=== PATIENT | female | born 1945 | race Caucasian/White ===

== ENCOUNTER 2024-12-03 10:31 | Outpatient (AMB) | payer MEDICARE, OTHER, SELFPAY ==
--- NOTE | 2024-12-03 10:34 | A.OFFVIS_ITS ---
Vital Signs 12/03/24 10:36 Height 5 ft 2 in Weight 161 lb 2 oz BMI 29.5 BP 142/76 H Blood Pressure Location Rt brachial Position Sitting Pulse 56 Pulse Source Pulse Oximeter Pulse Oximetry (%) 98 Oxygen Delivery Method Room Air Intake Visit Reasons: Shortness of breath Allergies Latex, Natural Rubber Allergy (Mild, Verified 12/03/24 10:42) Rash doxycycline Allergy (Verified 12/03/24 10:42) Vomiting indomethacin (From Indocin) Allergy (Verified 12/03/24 10:42) Gastrointestinal Upset HPI HPI Shortness of breath: Details: Stefanie is a pleasant 79 year old female, never smoker, with underlying HLD and h/o ovarian cancer s/p chemo/surgery 2016. She was referred by PCP for pulmonary evaluation for ongoing dyspnea. She reports more frequent episodes of dyspnea and inability to fully inspire over the past year. She denies any association related to activity. She is quite active on a daily basis either walking 4 miles or swimming, without any symptoms. She denies prior h/o asthma/COPD or second hand smoke exposures. Denies h/o recurrent URI. She denies any occupational exposures. Denies any pertinent family history. She was evaluated by cardiology and currently undergoing evaluation. Recently had an echo which did not reveal any significant abnormalities and had holter, awaiting results.Established with [facility] in [place]. She is under the care of [facility] and [facility] oncology. [facility] Social History (Updated 12/03/24 @ 10:39 by Nelda Peres CMA) Patient Tobacco Use Status: Never used Tobacco Review of Systems Const Denies chills, Denies excessive sweating, Denies fever(s), Denies headache(s) and Denies night sweats Eyes Denies dry eyes, Denies irritation and Denies itchy eyes ENT Reports Normal hearing present, Denies headache(s), Denies nasal congestion, Denies nasal discharge, Denies post nasal drip and Denies sore throat Card Denies chest pain, Denies chest pain at rest, Denies chest pain with activity, Denies claudication, Denies leg edema, Denies orthopnea and Denies paroxysmal nocturnal dyspnea Resp Denies chest congestion, Denies cough, Denies excessive phlegm production, Denies pain on inspiration, Denies pain with cough, Denies stridor and Denies wheezing Musc Denies myalgias Neuro Reports Normal hearing present and Denies headache(s) Endo Denies excessive sweating Jame/Lymph Denies lymphadenopathy Aller/Immun Denies itchy eyes, Denies seasonal rhinorrhea and Denies wheezing Physical Exam Vital Signs: Last Vital Signs Pulse 56 12/03/24 10:36 BP 142/76 H 12/03/24 10:36 Pulse Ox 98 12/03/24 10:36 Oxygen Delivery Method Room Air 12/03/24 10:36 BMI result Body Mass Index 29.5 Const General: cooperative, healthy appearing, comfortable, no acute distress, well developed and alert Nutritional Appearance: obese Orientation/consciousness: patient oriented x3 Limitations: no limitations HEENT Head: Yes normal to inspection, Yes normocephalic and Yes atraumatic Ears: hearing grossly normal bilaterally and external ears normal Eyes General: appearance normal, both eyes and all related structures Eyelids: Yes eyelids normal Sclerae: sclerae normal EOM: EOMs intact bilaterally Neck Neck: Yes normal visual inspection and Yes no lymphadenopathy Lymphatic: no lymphadenopathy noted Chest Chest palpation & inspection: normal inspection of the chest Resp Effort & Inspection: normal respiratory effort, able to speak in complete sente nces, no audible wheezes, no cough, no stridor, not tachypneic, no tripod positioning and no use of accessory muscles Auscultation: clear to auscultation bilaterally Cardio Jugular venous distension: no JVD Rate: regular rate Rhythm: regular rhythm Skin Other: warm, dry General skin exam: no rashes or lesions noted Neuro General: patient oriented x3 Cranial nerves: Yes Normal hearing present Cognition (Neuro): normal cognition Gait exam (Neuro): Normal gait present Extrem General: Yes normal to inspection, Yes capillary refill normal, Yes no clubbing, cyanosis or edema and Yes no pedal edema Psych Appearance: grossly normal and well kempt Speech and movement: Normal speech and movement present and Clear speech present Affect: normal affect Attitude: cooperative Thought process: Normal thought process present Thought content: Normal thought content present Insight: Good insight present (Psych) Judgement: Good judgement present (Psych) Assessment & Plan Assessment & Plan (1) Dyspnea: Code(s): R06.00 - Dyspnea, unspecified Category: Medical Plan Stefanie presents for pulmonary evaluation for more frequent episodes of dyspnea which mostly occur at rest. She is undergoing cardiac evaluation currently. Prio r echo did not reveal any significant findings. Will send for PFT to assess for an obstructive defect as well as CXR to assess for any underlying parenchymal conditions. All questions were answered and patient is in agreement of plan. Will follow up to review results or sooner if needed. Orders: Orders XR chest 2V 12/03/24 R06.00 - Dyspnea, unspecified PFT pulmonary function test Today R06.00 - Dyspnea, unspecified Coding Level of Care Code New Pt Level 3 (59001) Diagnoses Dyspnea R06.00
[2024-12-03 10:36] VITALS: BP 142/76; PULSE 56; O2SAT 98; BMI 29.5
--- OUTSIDE RECORDS SUMMARY | 2024-12-03 12:50 | XMS_ITS | Encounter Summary ---
Author Organization [facility] Address [address] [place] [id number] Phone Care Team Providers Care Fiberglass Roving Winder Name Role Phone Dayo Desai MD Primary Care Provider Dorinda Arita MD Unavailable [phone] Josh Herrera Unavailable [phone] Wayne Barnes MD Primary Care Provider [phone] Encounter Details Date Type Department Care Team (Late st Contact Info) Description 02/10/2020 Procedure Pass [facility] for Outpatient Care - [place] [address] [facility]th [place] [address] Social History Tobacco Use Types Packs/Day Years Used Date Smoking Tobacco: Never Comments Unknown Sex and Gender Information Value Date Recorded Sex Assigned at Not on file Legal Sex Female 10:54 AM EDT Gender Identity Not on file Sexual Orientation Not on file documented as of this encounter Plan of Treatment Upcoming Encounters Date Type Department Care Team (Late st Contact Info) Description 08/21/2025 2:00 PM EDT Office Visit [facility] [address] [place] [address] [place] [id number] Luisa Forrest MD [address] [place] [address] [address] [place] [address] [email or web address] 11/26/2025 12:30 PM EDT Blood Draw [facility] [address], [address], [address] [place] [address] Josh Herrera MBBS [address] [facility] [address] [place] [address] 11/26/2025 1:00 PM EDT Office Visit [facility] Oncology [address], [address] [place] [address] Josh Herrera MBBS [address] [facility] [address] [place] [address] [email or web address] documented as of this encounter Visit Diagnoses Not on filedocumented in this encounter Care Teams [employer] Roving Winder Relationship Specialty Start Date End Date Dayo Desai MD PCP - General Internal Medicine 07/12/16 07/02/23 Wayne Barnes MD [address] [place] [address] [address] [place] [address] PCP - General Internal Medicine 07/03/23 Dorinda Reed MD [address] [place] [address]_OB/[employer] [place] [address] Obstetrics and Gynecology 07/20/16 Josh Herrera MBBS [address] [place] [address]_OB/[place] [address] [email or web address] Primary Oncologist Medical Oncology 05/24/18 documented as of this encounter Additional Source Comments The information contained in this document represents components of the legal health record. It is not the complete legal health record.[facility]
--- OUTSIDE RECORDS SUMMARY | 2024-12-03 12:50 | XMS_ITS | Encounter Summary ---
Author Organization [facility] Address [address] [place] [id number] Phone Care Team Providers Care Farm Boss Name Role Phone Dayo Desai MD Primary Care Provider Droinda Arita MD Unavailable [phone] Josh Herrera Unavailable Wayne Barnes MD Primary Care Provider [phone] Encounter Details Date Type Department Care Team (Late st Contact Info) Description 06/09/2021 Procedure Pass [facility] for Outpatient Care - CT [address] [facility]th [place] [address] Social History Tobacco Use Types Packs/Day Years [...] 2:00 PM EDT Office Visit [facility] [address] [place] [address] [place] [address] Luisa Forrest MD [address] [place] [address] [address] [place] [address] [email or web address] 11/26/2025 12:30 PM EDT Blood Draw [facility] Oncology [address] [facility], [address], [address] [place] [address] Josh Herrera MBBS [address] [facility] [address] [place] [address] 11/26/2025 1:00 PM EDT Office Visit [facility] Oncology [address] [facility], [address], [address] [place] [address] Josh Herrera MBBS [address] [facility] [address] [place] [address] [email or web address] documented as of this encounter Visit Diagnoses Not on filedocumented in this encounter Care Teams Farm Boss Relationship Specialty Start Date End Date Dayo Desai MD PCP - General Internal Medicine 07/12/16 07/02/23 Wayne Barnes MD [address] [place] [address] [address] [place] [address] PCP - General Internal Medicine 07/03/23 Dorinda Reed MD [address] [place] [address]_OB/[place] [address] Obstetrics and Gynecology 07/20/16 Josh Herrera MBBS [address] [place] [address]_OB/[place] [address] [email or web address] Primary Oncologist Medical Oncology 05/24/18 documented as of this encounter Additional Source Comments The information contained in this document represents components of the legal health record. It is not the complete legal health record.[facility]
--- OUTSIDE RECORDS SUMMARY | 2024-12-03 12:50 | XMS_ITS | Clinical Summary ---
Author Organization [facility] Address [address] [place] [address] Phone Care Team Providers Care Line Clearance Foreman Name Role Phone Dorinda Reed MD Unavailable [phone] Josh Herrera Unavailable Wayne Barnes MD Primary Care Provider [phone] Allergies Active Allergy Reactions Criticality Noted Date Comments Adhesive Rash Low 08/10/2023 Doxycycline Unknown 01/28/2015 Can't keep it down Indocin (Indomethacin) GI Upset 01/28/2015 Latex Rash Low 12/07/2017 Medications cholecalciferol (VITAMIN D3) 1,000 unit tablet Take 1,000 Units by mouth daily. Active BIOTIN ORAL Take 1,000 mcg by mouth daily. Active linaCLOtide (LINZESS) 72 mcg capsule Take 72 mcg by mouth. 04/30/19 25 Active SYNTHROID 75 mcg tabletIndications :Acquired hypothyroidism 1 TABLET, ORALLY, DAILY SIX DAYS/WEEK, 1/2 TABLET ON THE 7TH DAY, OR DIRECTED 84 tablet 3 11/13/19 25 Active therapeutic multivitamin tablet Take 1 tablet by mouth daily. Active magnesium oxide 250 mg (150 mg elemental) Tab Take 250 mg by mouth daily. Active MILK THISTLE ORAL Take by mouth. Active ferrous sulfate 325 mg (65 mg ione iron) tablet Take 325 mg by mouth daily with breakfast. Active valsartan (DIOVAN) 40 MG tablet Take 1 tablet (40 mg total) by mouth daily. 90 tablet 4 11/28/19 25 Active bisoprolol 2.5 mg Tab Take 2.5 mg by mouth daily. 90 tablet 4 11/28/19 Active bisoprolol-hydroC HLOROthiazide (ZIAC) 2.5-6.25 mg per tablet Take 1 tablet by mouth daily. 90 tablet 4 10/13/19 24 025 Discontinued(N o longer taking) SYNTHROID 75 mcg tabletIndications :Acquired hypothyroidism 1 tablet, orally, daily six days/week, 1/2 tablet on the 7th day, or as directed 84 tablet 08/16/19 25 025 Discontinued amLODIPine (NORVASC) 2.5 MG tablet Take 2.5 mg by mouth daily. 025 Discontinued(N o longer taking) aspirin 81 MG EC tablet Take 81 mg by mouth daily. 025 Discontinued(N o longer taking) traMADoL (ULTRAM) 50 mg tablet Take 50 mg by mouth every 6 (six) hours as needed for pain (specific location in comments). 025 Discontinued(N o longer taking) Active Problems Problem Noted Date Diagnosed Date Supraventricular tachycardia 09/17/2023 Hair loss 08/11/2023 Assessment & Plan (08/15/2024 2:25 PM EDT): We had done some additional testing looking for causes of the latter last year w/o finding. Assessment & Plan (08/11/2023 2:00 PM EDT): Will include some additional labs to look for potential causes of hair loss. Ecchymosis 12/07/2017 Hyperlipidemia 10/26/2016 Ovarian cancer 07/20/2016 Acquired hypothyroidism Assessment & Plan (08/15/2024 2:25 PM EDT): 78 y.o. woman with longstanding hypothyroidism. She reports good consistency taking rx appropriately. She continues to have fatigued, weight gain & having some hair loss. She is taking biotin. Will hold biotin for 5-7 days & check labs & adjust rx as appropriate. To call/message via portal to let us know when labs are done. If levels normal, would repeat labs yearly, sooner prn symptoms of thyroid dysfunction or > 10-15# weight change, or as otherwise clinically indicated. Assessment & Plan (08/11/2023 1:55 PM EDT): 77 y.o. woman with longstanding hypothyroidism. She reports good consistency taking rx appropriately. She has been fatigued, gained some weight & having some hair loss. She is taking biotin. Will hold biotin for 5-7 days & check labs & adjust rx as appropriate. To call/message via portal if hasn't heard from me with results within 1-2 weeks. If levels normal, would repeat labs yearly, sooner prn symptoms of thyroid dysfunction or > 10-15# weight change, or as otherwise clinically indicated. If levels normal, would continue to work with PCP/other providers to look into non-endocrine causes of symptoms. Suggested she see GI given abdominal symptoms, negative CT scan done by physician gynecologist-onc. Resolved Problems Problem Noted Date Diagnosed Date Resolved Date Dyslipidemia 08/15/2024 08/15/2024 Lyme disease 10/26/2016 02/10/2023 Encounters Date Type Department Care Team Description 11/27/2024 1:00 PM EDT Office Visit [facility] Oncology [address] [place] [address], 9th Floor, [address] [place] [address] Josh Herrera MBBS Malignant neoplasm of ovary, unspecified laterality (Primary Dx) 11/27/2024 Ancillary Orders [facility] [address] [place] [address] Josh Herrera MBBS 11/25/2024 Orders Only [facility] Oncology [address] [place] [address], 9th Floor, [address] [address] Josh Herrera MBBS Malignant neoplasm of ovary, unspecified laterality (Primary Dx) 11/21/2024 9:15 AM EDT Office Visit [facility] General Surgical [facility] [address] [place] [address] Ericka Melara MD Incisional hernia, without obstruction or gangrene (Primary Dx) 11/10/2024 Refill [facility] Endocrinology [place] [address] [place] [place] [phone] Luisa Forrest MD Medication Refill 10/22/2024 Orders Only [facility] Endocrinology [place] [address] [place] [phone] Luisa Forrest MD Acquired hypothyroidism (Primary Dx) 09/11/2024 Orders Only [facility] [address] [place] [address] [place] [phone] Norma Johnson MA Acquired hypothyroidism 09/03/2024 Telephone [facility] [place] [address] [place] [address] [place] [address] Luisa Forrest MD Lab orders faxed & mailed (Lab orders faxed & mailed) from Last 3 Months Immunizations Immunization Administration Dates Next Due INFLUENZA, SPLIT VIRUS, TRIVALENT PF 01/06/2014 Influenza High-Dose Trivalen t Preservative Free IM 12/04/2017,12/22/2016,02/02/2016 Influenza Quadrivalent Adjuv anted Preservative Free IM 12/12/2022,12/13/2019 Influenza Trivalent Adjuvant ed Preservative free IM 10/31/2018 Influenza, Unspecified Formulation 12/12,10/31/2018,12/04/2017,12/22,02/02/2016,01/06/2014 Pneumococcal conjugate PCV13 10/31/2018 Pneumococcal conjugate, unsp ecified formulation 10/31/2018 Pneumococcal polysaccharide PPSV23 07/02/2020 RSV Vaccine (monovalent, adjuvanted) 01/18/2023 Rabies Diploid Cell Culture 09/27/2018, 9,09/20/2018 Rabies-im 09/27/2018,09/23/2018,09/20/2018 Tdap 02/18/2009 Zoster live 02/18/2009 Zoster recombinant 07/06/2023,02/11/2023 Family History Medical History Relation Comments Colon cancer Brother Bone cancer Father Colon cancer Father Testicular cancer Father Thyroid disease Mother Relation Status Comments Brother Father Mother Social History Tobacco Use Types Packs/Day Years Used Date Smoking Tobacco: Never Smokeless Tobacco: Never Tobacco Cessation:Counseling Given: Not Answered Education Answer Date Recorded Are you interested in more education? Not on dena e 07/08/2022 Are you concerned about learning? Not on file 07/08/2022 No 07/08/2022 No 07/08/2022 Digital Access Answer Date Recorded No 08/08/2022 No 08/08/2022 Reliable internet access at home? Not on file 08/08/2022 Device with a working camera? Not on file Comments Unknown Sex and Gender Information Value Date Recorded Sex Assigned at Not on file Legal Sex Female 10:54 AM EDT Gender Identity Not on file Sexual Orientation Not on file Last Filed Vital Signs Vital Sign Reading Time Taken Comments Blood Pressure 142/85 11/27/2024 12:54 PM EDT Pulse 60 11/27/2024 12:54 PM EDT Temperature 36.4 C (97.5 F) 11/27/2024 12:54 PM EDT Respiratory Rate 16 11/27/2024 12:54 PM EDT Oxygen Saturation 98% 11/27/2024 12:54 PM EDT Inhaled Oxygen Concentration - - Weight 72.4 kg (159 lb 9.6 oz) 11/27/2024 12:54 PM EDT Height 154 cm (5' 0.63 ) 06/10/2024 1:50 PM EDT Body Mass Index 30.53 06/10/2024 1:50 PM EDT Plan of Treatment Upcoming Encounters Date Type Department Care Team (Late st Contact Info) Description 08/21/2025 2:00 PM EDT Office Visit [facility] [address] [place] [address] Luisa Forrest MD [address] [facility] 3rd [place] [address] 11/26/2025 12:30 PM EDT Blood Draw [facility] [address] [facility], 9th Floor, [address] [place] [address] Josh Herrera MBBS [address] [address] 11/26/2025 1:00 PM EDT Office Visit [facility] [address] [address] [facility] [facility], 9th Floor, [address] [place] [address] Josh Herrera MBBS [address] [place] [address] [email or web address] Health Maintenance Due Date Last Done Comments LIPID PANEL 1945 DEPRESSION SCREENING 1959 HEPATITIS C SCREENING 08/22/1965 OSTEOPOROSIS SCREENING INITIAL (ONE-TIME) 08/22/2012 Adult Td,Tdap Booster 02/18/2019 02/18/2009 INFLUENZA VACCINE (#1) 2024 , 12/12/2022, 12/13/2019, Additional history exists COVID-19 VACCINE ( season) 2024 12/08/2023, 07/26/2023, 01/02/2023, Additional history exists TSH LEVEL 09/10/2025 09/10/2024, 11/12, 10/11/2023, Additional history exists CREATININE LEVEL 11/27/2025 11/27/2024, , 10/11/2023, Additional history exists POTASSIUM LEVEL 11/27/2025 11/27/2024, 09/12, 12/07/2022, Additional history exists PNEUMOCOCCAL VACCINES (50+ years) Completed 07/02/2020, 10/31/2018 RSV VACCINE Completed 01/18/2023 ZOSTER VACCINES Completed 07/06/2023, 1204/2022, 02/18/2009 SMOKING STATUS SCREENING (Once After 26 Yrs) Completed 11/27/2024 HEPATITIS A VACCINES Aged Out No long er eligible based on patient's age to complete this topic HIB VACCINES Aged Out No longer eligi ble based on patient's age to complete this topic MENINGOCOCCAL VACCINES (ACWY) Aged Out No longer eligible based on patient's age to complete this topic MENINGOCOCCAL VACCINES (B) Aged Out N o longer eligible based on patient's age to complete this topic Medical Devices Not on file Procedures Procedure Name Priority Date/Time Associated Diagnosis Comments CA-125 Routine 11/27/2024 12:23 PM EDT Malignant neoplasm of ovary, unspecified laterality CBC AND DIFFERENTIAL Routine 11/27/2024 12:23 PM EDT Malignant neoplasm of ovary, unspecified laterality COMPREHENSIVE METABOLIC PANEL Routine 11/27/2024 12:23 PM EDT Malignant neoplasm of ovary, unspecified laterality OUTSIDE IMAGING 10/17/2024 TSH WITH REFLEX Routine 09/10/2024 9:39 AM EDT Acquired hypothyroidism from Last 3 Months Results * Comprehensive metabolic panel (11/27/2024 12:23 PM EDT) SODIUM 140 135 - 145 mmol/L [facility] POTASSIUM 4.2 3.4 - 5.0 mmol/L [facility] CHLORIDE 103 98 - 108 mmol/L [facility] CO2 26 23 - 32 mmol/L [facility] BUN 20 8 - 25 mg/dL [facility] CREATININE 0.76 0.50 - 1.00 mg/dL [facility] GLUCOSE 108 70 - 110 mg/dL [facility] ALBUMIN 4.3 3.3 - 5.0 g/dL [facility] TOTAL PROTEIN 6.6 6.0 - 8.3 g/dL [facility] CALCIUM 9.5 8.5 - 10.5 mg/dL [facility] ALKALINE PHOSPHATASE 50 30 - 100 U/L [facility] TOTAL BILIRUBIN 0.3 0.0 - 1.0 mg/dL [facility] AST 24 9 - 32 U/L [facility] ALT 17 7 - 33 U/L [facility] GLOBULIN 2.3 1.9 - 4.1 g/dL [facility] EGFR 81 >59 mL/min/1. 73m2 [facility] Comment:Estimated glomerular filtration rate calculated using the CKD-EPI refit equation. ANION GAP 11 3 - 17 mmol/L [facility] 11/27/2024 12:2 3 PM EDT 11/27/2024 12:31 PM EDT us Josh DUBON LAB BLOOD ORDERABLES Final Result [facility] [address] [place] [address] * CBC and differential (11/27/2024 12:23 PM EDT) WBC 8.33 4.00 - 11.00 K/uL [facility] RBC 4.77 4.00 - 5.20 M/uL [facility] HGB 13.2 12.0 - 16.0 g/dL [facility] HCT 40.5 36.0 - 46.0 % [facility] PLT 258 150 - 450 K/uL [facility] MCV 84.9 80.0 - 100.0 fL [facility] MCH 27.7 27.0 - 31.0 pg [facility] MCHC 32.6 32.0 - 36.0 g/dL [facility] RDW 13.2 11.5 - 14.5 % [facility] MPV 9.5 8.4 - 12.0 fL [facility] NRBC 0.00 0.00 /100 WBCs [facility] ABSOLUTE NRBC 0.00 0.00 K/uL [facility] DIFF METHOD Auto [facility] NEUTS 64.2 48.0 - 76.0 % [facility] LYMPHS 25.5 18.0 - 41.0 % [facility] MONOS 7.6 4.0 - 11.0 % [facility] EOS 1.8 0.0 - 5.0 % [facility] BASOS 0.5 0.0 - 1.5 % [facility] % IMMATURE GRANS 0.4 0.0 - 0.9 % [facility] ABSOLUTE NEUTS 5.36 1.92 - 7.60 K/uL [facility] ABSOLUTE LYMPHS 2.12 0.72 - 4.10 K/uL [facility] ABSOLUTE MONOS 0.63 0.16 - 1.10 K/uL [facility] ABSOLUTE EOS 0.15 0.00 - 0.50 K/uL [facility] ABSOLUTE BASOS 0.04 0.00 - 0.15 K/uL [facility] ABS IMMATURE GRANS 0.03 0.00 - 0.09 K/uL [facility] Blood 11/27/2024 12:2 3 PM EDT 11/27/2024 12:31 PM EDT us Josh DUBON LAB BLOOD ORDERABLES Final Result [place] [address] [address] * CA-125 (11/27/2024 12:23 PM EDT) CA125 27 0 - 35 U/mL [facility] 11/27/2024 12:2 3 PM EDT 11/27/2024 12:31 PM EDT us Josh DUBON LAB BLOOD ORDERABLES Final Result Performing Organization Address City/[facility]/ZIP Co de Phone Number [facility] [address] [place] [address] * Outside Imaging Report Only (10/17/2024) us Scanning Interface Provider IMG XR CHEST Maria A l Result * TSH with reflex (09/10/2024 9:39 AM EDT) Blood us Luisa Forrest MD LAB BLOOD ORDERABLES F inal Result Performing Organization Address City/[facility]/ZIP Co de Phone Number [facility] [address] [place] [address] from Last 3 Months Insurance MEDICARE PART A & B [facility] [place] [address] MEDICARE PART A & B Member Subscriber Plan / Payer (Ef fective 2012-Present) Name:Stefanie Martin Member ID:[id number] Relation to Subscriber:Self Name:Stefanie Martin Subscriber ID:[id number] Payer ID:[id number] Group ID:Not on file Type:Medicare Address: [employer] [facility] [address] [place] [address] [employer] EXTENSION MEDICARE SUPPLEMENT MEDICARE PART A & B [facility] EXTENSION MEDICARE SUPPLEMENT MEDICARE PART A & B [facility] EXTENSION MEDICARE SUPPLEMENT MEDICARE PART A & B [facility] EXTENSION MEDICARE SUPPLEMENT MEDICARE PART A & B [facility] EXTENSION MEDICARE SUPPLEMENT MEDICARE PART A & B [facility] EXTENSION MEDICARE SUPPLEMENT MEDICARE PART A & B [facility] EX[facility]ENSION MEDICARE SUPPLEMENT MEDICARE PART A & B [email or web address] MEDICARE SUPPLEMENT Care Teams Line Clearance Foreman Relationship Specialty Start Date End Date Wayne Barnes MD [address] [place] [address] [address] [place] [address] PCP - General Internal Medicine 07/03/23 Dorinda Reed MD [address] [place] [address]_OB/[place] [address] Obstetrics and Gynecology 07/20/16 Josh Herrera MBBS [address] [place] [address]_OB/[place] [address] Primary Oncologist Medical Oncology 05/24/18 Additional Source Comments The information contained in this document represents components of the legal health record. It is not the complete legal health record.[facility]
--- OUTSIDE RECORDS SUMMARY | 2024-12-03 12:50 | XMS_ITS | Encounter Summary ---
Author Organization [facility] Address [address] [place] [address] [place] [address] Phone Care Team Providers Care Adult Secondary Education Instructor Name Role Phone Dayo Desai MD Primary Care Provider Dorinda Arita MD Unavailable Josh Herrera Unavailable Wayne Barnes MD Primary Care Provider [phone] Encounter Details Date Type Department Care Team (Late st Contact Info) Description 07/20/[address] [facility] Imaging [address] [place] [address] Social History Tobacco Use Types Packs/Day Years [...] 2:00 PM EDT Office Visit [facility] [address] [place] [address] Luisa Forrest MD 22 [facility] 3rd [place] [address] 11/26/2025 12:30 PM EDT Blood [address] [facility] Oncology [address] [facility], 9th Floor, [address] [place] [address] Josh Herrera MBBS [address] [facility] [place] [address] 11/26/2025 1:00 PM EDT Office Visit [facility] Oncology [address] [facility], 9th Floor, [address] [place] [address] Josh Herrera MBBS [address] [facility] [address] [place] [address] [email or web address] documented as of this encounter Visit Diagnoses Not on filedocumented in this encounter Care Teams Adult Secondary Education Instructor Relationship Specialty Start Date End Date Dayo Desai MD PCP - General Internal Medicine 07/12/16 07/02/23 Wayne Barnes MD [address] [place] [address] [address] [place] [address] PCP - General Internal Medicine 07/03/23 Dorinda Reed MD [address] [place] [address]_OB/[place] [address] Obstetrics and Gynecology 07/20/16 Josh Herrera MBBS [address] [place] [address]_OB/[place] [address] [email or web address] Primary Oncologist Medical Oncology 05/24/18 documented as of this encounter Additional Source Comments The information contained in this document represents components of the legal health record. It is not the complete legal health record.[facility]
--- OUTSIDE RECORDS SUMMARY | 2024-12-03 12:50 | XMS_ITS | Clinical Summary ---
Author Organization [facility] Address [address] [place] [address] Care Team Providers Care Head Inspector And Center Marker Name Role Phone Wayne Barnes MD Primary Care Provider [phone] Allergies Active Allergy Reactions Criticality Noted Date Comments Doxycycline Other (See Comments) 01/28/2015 Erythromycin Base 12/07/2020 Indomethacin Other (See Comments) 01/28/2015 Latex Rash Low 12/07/2017 Medications Medication Sig Dispensed Refills Start Date End Date Status Synthroid 100 MCG tablet TAKE 1 TABLET BY MOUTH EVERY DAY IN THE MORNING 0 11/30/2020 Active naproxen (NAPROSYN) 500 MG tablet Take 500 mg by mouth 2 (two) times a day. 0 12/03/2020 Active traMADol (ULTRAM) 50 MG tablet TAKE 0.5 TABLET BY MOUTH EVERY 6 HOURS,X2 DAYS, NEEDED FOR PAIN 0 11/24/2020 Active Social History Tobacco Use Types Packs/Day Years Used Date Smoking Tobacco: Never Smokeless Tobacco: Never Alcohol Use Standard Drinks/Week Comments Never 0 (1 standard drink = 0.6 oz pur e alcohol) Sex and Gender Information Value Date Recorded Sex Assigned at Not on file Gender Identity Not on file Sexual Orientation Not on file Job Start Date Occupation Industry Not on file Not on file Not on file Last Filed Vital Signs Vital Sign Reading Time Taken Comments Blood Pressure - - Pulse - - Temperature - - Respiratory Rate - - Oxygen Saturation - - Inhaled Oxygen Concentration - - Weight 63.5 kg (140 lb) 12/07/2020 2:13 PM EDT Height 157.5 cm (5' 2 ) 12/07/2020 2:13 PM EDT Body Mass Index 25.61 12/07/2020 2:13 PM EDT Plan of Treatment Health Maintenance Due Date Last Done Comments Hepatitis C Screening 1945 COVID-19 Vaccine (#1) 02/22/1946 Depression Screening 1959 Preventative Health Evaluation 08/22/1965 DTap / Tdap / Td (1 - Tdap) 08/22/1966 Shingrix-Zoster Vaccine (1 o f 2) 08/22/1997 Fall Risk Assessment 08/22/2012 Osteoporosis Screening (DEXA Scan) 08/22/2012 RSV Adult > 60+ Yrs or (1 - 1-dose 75+ series) 08/22/2022 Influenza Vaccine (#1) 2024 Pneumococcal Vaccine Completed 07/02/2020, 10/31/2018 Hepatitis B Vaccines Aged Out No long er eligible based on patient's age to complete this topic RSV Ped < 20 months Aged Out No longe r eligible based on patient's age to complete this topic Care Teams Head Inspector And Center Marker Relationship Specialty Start Date End Date Wayne Barnes MD [address] [facility] [address] [place] [address] PCP - General Cloak Room Attendant 11/24/20
--- OUTSIDE RECORDS SUMMARY | 2024-12-03 12:50 | XMS_ITS | Encounter Summary ---
Author Organization [facility] Address [address] [place] [address] Phone Care Team Providers Care Aircraft Instrument Engineer Name Role Phone Dayo Desai MD Primary Care Provider Dorinda Arita MD Unavailable [phone] Josh Herrera Unavailable Wayne Barnes MD Primary Care Provider [phone] Encounter Details Date Type Department Care Team (Late st Contact Info) Description 06/09/2021 Procedure Pass [facility] [address] [facility], 6th [place] [address] Social History Tobacco Use Types Packs/Day Years [...] 2:00 PM EDT Office Visit [facility] [address] [place] [address] [place] [address] Luisa Forrest MD [address] [place] [address] [address] [place] [address] [email or web address] 11/26/2025 12:30 PM EDT Blood Draw [facility] On[facility] [address] [facility], 9th Floor, [address] [place] [address] Josh Herrera MBBS [address] [facility] [address] [place] [address] 11/26/2025 1:00 PM EDT Office Visit [facility] Oncology [address] [facility], 9th Floor, [address] [place] [address] Josh Herrera MBBS [address] [facility] [address] [place] [address] [email or web address] documented as of this encounter Visit Diagnoses Not on filedocumented in this encounter Care Teams Aircraft Instrument Engineer Relationship Specialty Start Date End Date Dayo Desai MD PCP - General Internal Medicine 07/12/16 07/02/23 Wayne Barnes MD [address] [place] [address] [address] [place] [address] PCP - General Internal Medicine 07/03/23 Dorinda Reed MD [address] [place] [address]_OB/[place] [address] Obstetrics and Gynecology 07/20/16 Josh Herrera MBBS [address] [place] [address]_OB/[place] [address] [email or web address] Primary Oncologist Medical Oncology 05/24/18 documented as of this encounter Additional Source Comments The information contained in this document represents components of the legal health record. It is not the complete legal health record.[facility]
--- OUTSIDE RECORDS SUMMARY | 2024-12-03 12:50 | XMS_ITS | Clinical Summary ---
Author Organization [facility] 299 [facility] Address [address] [place] [address] Phone Care Team Providers Care Button Reclaimer Name Role Phone Wayne Barnes MD Primary Care Provider [phone] Allergies Active Allergy Reactions Criticality Noted Date Comments Doxycycline Unknown 01/28/2015 Indomethacin Unknown 01/28/2015 Latex Rash Low 12/07/2017 Medications bisoprolol-hydr oCHLOROthiazide (ZIAC) 2.5-6.25 mg per tablet Take 1 tablet by mouth 1 (one) time each day. Active aspirin 81 mg EC tablet Take 1 tablet (81 mg total) by mouth. 12/25/2019 Active Synthroid 75 mcg tablet 1 tablet orally six days/week, 1/2 tablet on the 7th day, or as directed 12/05/2023 Active ferrous sulfate (iron) 325 mg (65 mg elemental iron) tablet Take 1 tablet (325 mg total) by mouth 1 (one) time each day with breakfast. Active linaCLOtide (Linzess) 72 mcg capsule Take 1 capsule (72 mcg total) by mouth 1 (one) time each day. 30 each 2 10/01/2024 12/31/19 25 Active Encounters Date Type Department Care Team Description 10/03/2024 Telephone [facility] Cardiology [facility] [address] [place] [address] Wayne Barnes MD 10/03/2024 Telephone [facility] Dr [facility] Jason [address] [place] [address] Wayne Barnes MD 10/02/2024 Telephone [facility]iology [facility] [address] [place] [address] Wayne Barnes MD 10/01/2024 Telephone Gastroenterology - [address] [facility] [address] [place] [address] Romaine Cooper MD from Last 3 Months Surgical History Surgery Date Site/Laterality Comments TOTAL ABDOMINAL HYSTERECTOMY W/ BILATERAL SALPINGOOPHORECTOMY COLONOSCOPY W/ BIOPSIES AND POLYPECTOMY 06/21/2022 TA x 1 COLONOSCOPY 11/27/2015 nl with hemorrhoids Medical History Medical History Date Comments Hypothyroid Chronic idiopathic constipation HTN (hypertension) Pill dysphagia 05/31/2022 barium swallow w ith mild dysmotility and oral pharyngeal prolonged oral phase Ovarian cancer (CMS/HCC V24, CMS/HCC V28) 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, sp surgery and chemo Family History Medical History Relation Name Comments Colon cancer Brother Colon cancer Father Relation Name Status Comments Brother Father Social History Tobacco Use Types Packs/Day Years Used Date Smoking Tobacco: Never Smokeless Tobacco: Never Alcohol Use Standard Drinks/Week Comments Never 0 (1 standard drink = 0.6 oz pur e alcohol) Comments Unknown Sex and Gender Information Value Date Recorded Sex Assigned at Female 02/16/2024 8:34 AM EST Legal Sex Female 1:52 PM EST Gender Identity Female 02/16/2024 8:34 AM EST Sexual Orientation Straight 02/16/2024 8: 34 AM EST 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 on file Not on file Obstetrics History Last Filed Vital Signs Vital Sign Reading Time Taken Comments Blood Pressure - - Pulse - - Temperature - - Respiratory Rate - - Oxygen Saturation - - Inhaled Oxygen Concentration - - Weight 74.6 kg (164 lb 6.4 oz) 08/19/2024 1:53 P M EDT Height 157.5 cm (5' 2 ) 08/19/2024 1:53 PM EDT Body Mass Index 30.07 08/19/2024 1:53 PM EDT Plan of Treatment Upcoming Encounters Date Type Department Care Team (Late st Contact Info) Description 02/18/2025 3:40 PM EST Office Visit Gastroenterology - [address] [facility] [address] [place] [address] Romaine Cooper MD [address] [place] [address] [address] [place] [address] Health Maintenance Due Date Last Done Comments DTaP,Tdap,and Td Vaccines (2 - Td or Tdap) 02/18/2019 02/18/2009 Cholesterol Screening (Lipid Panel) 02/08/2022 Falls Risk Assessment 02/08/2022 Hepatitis C Screening 02/08/2022 Medicare Annual Wellness Visit 02/08/2022 Social Influencers of Health Screening 02/08/2022 Depression Screening 03/13/2024 COVID-19 Vaccine (8 - Moderna risk season) 2024 12/08/2023, 07/26/2023, 01/02/2023, Additional history exists Influenza Vaccine (#1) 2024 , 12/12/2022, 12/13/2019, Additional history exists Osteoporosis Screening (Bone Density Screening) 08/18/2030 08/18/2020 Pneumococcal Vaccine: 50+ Years Completed 07/02/2020, 10/31/2018 Breast Cancer Screening Discontinued 07/28/2020, 07/04 Colorectal Cancer Screening: Colonoscopy Discontinued 06/21/2022, 11/27/2015 RSV Immunization Adult Patients Completed 01/18/2023 Zoster Vaccines Completed 07/06/2023, 1204/2022, 02/18/2009 HIB Vaccines Aged Out No longer eligi ble based on patient's age to complete this topic HPV Vaccines Aged Out No longer eligi ble based on patient's age to complete this topic Hepatitis A Vaccines Aged Out No long er eligible based on patient's age to complete this topic Hepatitis B Vaccines Aged Out No long er eligible based on patient's age to complete this topic IPV Vaccines Aged Out No longer eligi ble based on patient's age to complete this topic MMR Vaccines Aged Out No longer eligi ble based on patient's age to complete this topic Meningococcal ACWY Vaccine Aged Out N o longer eligible based on patient's age to complete this topic Meningococcal B Vaccine Aged Out No l onger eligible based on patient's age to complete this topic RSV Immunization Patients Under 20 months Aged Out No longer eligible based on patient's age to complete this topic Varicella Vaccines Aged Out No longer eligible based on patient's age to complete this topic Procedures Procedure Name Priority Date/Time Associated Diagnosis Comments COLONOSCOPY Routine 06/21/2022 4:09 PM EDT [facility] DEXA AXIAL SKELETON Routine 08/18/2020 5:27 PM EDT Encounter for screening for osteoporosis [facility] SCREENING DIGITAL Routine 07/28/2020 4:44 PM EDT Encounter for screening mammogram for malignant neoplasm of breast from Last 3 Months or Most Recently Relevant to Health Maintenance Results * COLONOSCOPY (06/21/2022 4:09 PM EDT) Anatomical Region Laterality Modality Endoscopy us Historical Provider MD ORELLANA~PROCEDURE ORDERABLES F inal Result * [facility] DEXA AXIAL SKELETON (08/18/2020 5:27 PM EDT) Anatomical Region Laterality Modality Mammography 08/18/2020 2:31 PM EDT Narrative 08/18/2020 5:27 PM EDT [facility] Diagnostic Imaging Department [address] [place] [address] Patient: LAKISHA ANTONIO D.O.B./Age/Sex: 1945 - 74 - F Unit#: [id number] Location/Status: SPDIMAM/REG CLI Mnemonic/[facility] Ordering Physician: NORA SAWANT PA-C [facility] Dexa Axial Skeleton - 08/18/20 - 4071 HISTORY: The patient is a 74-year-old postmenopausal female with history of adult fracture and clinical concern for metabolic bone disease. FINDINGS: Dual energy x-ray absorptiometry of the lumbar spine and femurs is performed. The mean bone mineral density at L1-L2 is 0.95 gm/cm2. This yields a T-score of -1.8 and a Z-score of -0.1 which is diagnostic of osteopenia. The mean bone mineral density of the femurs bilaterally is 0.837 gm/cm2. This yields a T-score of -1.4 and a Z-score of 0.3 which is diagnostic of osteopenia. IMPRESSION: 1. Osteopenia. 2. FRAX analysis yields a 10-year probability of major osteoporotic fracture of 20.8% and a 10-year probability of hip fracture of 4.9%. Code 42689 Dictating Physician: ROMAINE STOKES MD Electronically Signed by: ROMAINE STOKES MD Dic Date/Time: 08/18/201724 Sign date/Time: 08/18/201726 Procedure Note Maria L Stokes MD - 03/01/2022 [facility] Diagnostic Imaging Department [address] [place] [address] Patient: DHIRAJ TREJOLAKISHA D.O.B./Age/Sex: 1945 - 74- F Unit#: [id number] Location/Status: SPDIMAM/REG CLI Mnemonic[facility] Ordering Physician: NORA SAWANT PA-C [facility] Dexa Axial Skeleton - 08/18/20 - 9207 HISTORY: The patient is a 74-year-old postmenopausal female with historyof adult fracture and clinical concern for metabolic bone disease. FINDINGS: Dual energy x-ray absorptiometry of the lumbar spine and femursis performed. The mean bone mineral density at L1-L2 is 0.95 gm/cm2. Thisyields a T-score of -1.8 and a Z-score of -0.1 which is diagnostic of osteopenia. The mean bone mineral density of the femurs bilaterally is 0.837 gm/cm2.This yields a T-score of -1.4 and a Z-score of 0.3 which is diagnostic ofosteopenia. IMPRESSION: 1. Osteopenia. 2. FRAX analysis yields a 10-year probability of major osteoporoticfracture of 20.8% and a 10-year probability of hip fracture of 4.9%. Code 64718 Dictating Physician: ROMAINE STOKES MD Electronically Signed by: ROMAINE STOKES MD Dic Date/Time: 08/18/201724 Sign date/Time: 08/18/201726 Nora BRITO IMG BI PROCEDURES Final Result * [facility] SCREENING DIGITAL (07/28/2020 4:44 PM EDT) Anatomical Region Laterality Modality Mammography 07/28/2020 3:03 PM EDT Narrative 07/28/2020 4:44 PM EDT [facility] Diagnostic Imaging Department [address] [place] [address] Patient: LAKISHA ANTONIO Jair Jo/Age/Sex: 1945 - 74 - F Unit#: [id number] Location/Status: SPDIMAM/REG CLI Mnemonic/Ordering Site: [facility]AM Ordering Physician: NORA SAWANT PA-C [facility] Screening Digital - 07/28/20 - 1540 EXAM: [facility] Screening Digital EXAM DATE AND TIME: 07/28/2020 3:40 PM HISTORY: Screening. Personal history of endometrial carcinoma. Maternal aunt had breast carcinoma. COMPARISON: 07/10/18, 07/04/18, 09/09/16, 10/31/12 TECHNIQUE: CC and MLO views of both breasts were obtained using full field digital mammography. Bilateral digital breast tomosynthesis was performed in the MLO projection. Computer aided detection with the ChromaDex 7.2-H was employed. TISSUE DENSITY: c. The breasts are heterogeneously dense, which may obscure small masses. FINDINGS: No suspicious masses, grouped microcalcifications, or areas of architectural distortion are seen. There are rare benign calcifications. The skin and vascularity are unremarkable. IMPRESSION: Stable mammographic appearance of the breasts. No evidence of malignancy is seen. A negative mammogram in the presence of a clinically suspicious palpable abnormality does not preclude the possibility of malignancy or alter the indications for biopsy. BI-RADS: Category 2: Benign RECOMMENDATION(S): 1: Routine screening mammogram BILATERAL in 1 year. 13282, 95577 3342F, 7025F Dictating Physician: GEOVANNA CEDEÑO MD Electronically Signed by: GEOVANNA CEDEÑO MD Dic Date/Time: 07/28/20 1642 Sign date/Time: 07/28/20 1644 Procedure Note Geovanna Cedeño MD - 03/01/2022 [facility] Diagnostic Imaging Department [address] [place] [address] [id number] Patient: LAKISHA ANTONIO /Age/Sex: 1945 - 74- F Unit#: [id number] Location/Status: SPDIMAM/REG CLI Mnemonic/Ordering Site: [facility] Ordering Physician: NORA SAWANT PA-C [facility] Screening Digital - 07/28/20 - 1540 EXAM: [facility] Screening Digital EXAM DATE AND TIME: 07/28/2020 3:40 PM HISTORY: Screening. Personal history of endometrial carcinoma. Maternalaunt had breast carcinoma. COMPARISON: 07/10/18, 07/04/18, 09/09/16, 10/31/12 TECHNIQUE: CC and MLO views of both breasts were obtained using fullfield digital mammography. Bilateral digital breast tomosynthesis was performedin the MLO projection. Computer aided detection with the ChromaDex 7.2-Zeta Interactiveas employed. TISSUE DENSITY: c. The breasts are heterogeneously dense, which mayobscure small masses. FINDINGS: No suspicious masses, grouped microcalcifications, or areas ofarchitectural distortion are seen. There are rare benign calcifications. The skin and vascularity are unremarkable. IMPRESSION: Stable mammographic appearance of the breasts. No evidence of malignancyis seen. A negative mammogram in the presence of a clinically suspicious palpable abnormality does not preclude the possibility of malignancy or alter the indications for biopsy. BI-RADS: Category 2: Benign RECOMMENDATION(S): 1: Routine screening mammogram BILATERAL in 1 year. 17318, 75272 3342F, 7025F Dictating Physician: GEOVANNA CEDEÑO MD Electronically Signed by: GEOVANNA CEDEÑO MD Dic Date/Time: 07/28/20 1642 Sign date/Time: 07/28/20 1644 Nora BRITO IMG BI PROCEDURES Final Result from Last 3 Months or Most Recently Relevant to Health Maintenance Insurance [facility]IC[facility] Care Teams Button Reclaimer Relationship Specialty Start Date End Date Wayne Barnes MD [address] [place] [address] PCP - General Internal Medicine 02/14/24
--- OUTSIDE RECORDS SUMMARY | 2024-12-03 12:50 | XMS_ITS | Encounter Summary ---
Author Organization [facility] Address [address] [address] Phone Care Team Providers Care Parts Clerk Name Role Phone Dayo Desai MD Primary Care Provider Dorinda Arita MD Unavailable [phone] Josh Herrera Unavailable [phone] Wayne Barnes MD Primary Care Provider [phone] Encounter Details Date Type Department Care Team (Late st Contact Info) Description 02/10/2020 Procedure Pass [facility] for [facility] - [facility] [address] [facility] 6th [place] [address] Social History Tobacco Use Types Packs/Day Years [...] 2:00 PM EDT Office Visit [facility] [address] [place] [address] [place] [address] Luisa Forrest MD [address] [place] [address] [address] [place] [address] [email or web address] 11/26/2025 12:30 PM EDT Blood Draw [facility] for Gy[facility]cology Oncology [address] [facility], 9th Floor, [address] [place] [address] Josh Herrera MBBS [address] [facility] [address] [place] [address] 11/26/2025 1:00 PM EDT Office Visit [facility] Gyne[facility] Oncology [address] [facility], 9th Floor, [address] [place] [address] Josh Herrera MBBS [address] [facility] [address] [place] [address] [email or web address] documented as of this encounter Visit Diagnoses Not on filedocumented in this encounter Care Teams Parts Clerk Relationship Specialty Start Date End Date Dayo Desai MD PCP - General Internal Medicine 07/12/16 07/02/23 Wayne Barnes MD [address] [place] [address] [address] [place] [address] PCP - General Internal Medicine 07/03/23 Dorinda Reed MD [address] [place] [address]_OB/[place] [address] Obstetrics and Gynecology 07/20/16 Josh Herrera MBBS [address] [place] [address]_OB/[place] [address] [email or web address] Primary Oncologist Medical Oncology 05/24/18 documented as of this encounter Additional Source Comments The information contained in this document represents components of the legal health record. It is not the complete legal health record.[facility]
--- OUTSIDE RECORDS SUMMARY | 2024-12-03 12:51 | XMS_ITS | Encounter Summary ---
Author Organization [facility] Address [address] [place] [address] Phone Care Team Providers Care Ichthyologist Name Role Phone Dayo Desai MD Primary Care Provider Dorinda Arita MD Unavailable [phone] Josh Herrera Unavailable [phone] Wayne Barnes MD Primary Care Provider [phone] Reason for Referral * Outpatient Procedure - Closed Specialty Diagnoses / Procedures Referred By Etienne tate Referred To Contact Radiology Diagnoses TIA (transient ischemic attack) Procedures US Carotid Duplex Complete (Bilateral) Dayo Vazquez MD [address] [place] [address], [address] [place] [address] Phone: tel: fax: [email or web address] Referral ID Status Reason Start Date Expiration Date Visits Re quested Visits Authorized [id number] Closed 06/23/2023 06/22/2024 1 1 Encounter Details Date Type Department Care Team (Latest Contact Info) Description 06/23/2023 Transcribe Orders Virtual Department [address] [place], [place] [phone] Dayo Vazquez MD [address] [place] [address], [address] [place] [phone] [email or web address] TIA (transient ischemic attack) (Primary Dx) Social History Tobacco Use Types Packs/Day Years Used Date Smoking Tobacco: Never Smokeless Tobacco: Never Education Answer Date Recorded Are you interested [...] 2:00 PM EDT Office Visit [facility] [address] [place] [address] Luisa Forrest MD [address] [place] [address] [address] [place] [address] 11/26/2025 12:30 PM EDT Blood Draw [facility] Center for Gynecology Oncology [address] [place] [address], 9th Floor, [address], [place] [address] Josh Herrera MBBS [address] [place] [address] 11/26/2025 1:00 PM EDT Office Visit [facility] for Gynecology Oncology [address] [facility], 9th Floor, [address] [address] Josh Herrera MBBS [address] [address] documented as of this encounter Results * US Carotid Duplex Complete (Bilateral) (07/10/2023 5:09 PM EDT) Anatomical Region Laterality Modality Heart, Thoracic Vasculature, Neck Ultrasound 07/11/2023 2:46 PM EDT Impressions 07/11/2023 5:08 PM EDT Mild atherosclerotic changes. No evidence of hemodynamically significant cervical common carotid or proximal ICA stenosis. Narrative 07/11/2023 5:08 PM EDT US CAROTID DUPLEX COMPLETE (BILATERAL) HISTORY: TIA. TECHNIQUE: Ultrasound Carotid Duplex with color flow Doppler and spectral waveform Doppler. Arterial inflow was assessed. COMPARISON: No relevant carotid imaging available. FINDINGS: Mild atherosclerotic mural thickening affects the carotid bulb on the left, minimal effect upon the lumen. Right Common carotid artery: No discernible flow limiting stenosis throughout the cervical carotid artery. Internal carotid artery: There is no evidence of flow-limiting stenosis following standard velocity criteria. Peak systolic over end diastolic velocities within the distal common carotid artery and proximal ICA are 90/29 and 73/23 cm/s. ICA to CCA peak systolic velocity ratio is 0.81. External carotid artery: No flow limiting stenosis. Vertebral artery: Normal velocity, antegrade flow 61/19 cm/s. Left Common carotid artery: No discernible flow limiting stenosis throughout the cervical carotid artery. Internal carotid artery: No evidence of flow-limiting stenosis by velocity criteria or suggested on color flow imaging. Peak systolic over end diastolic velocities within the distal common carotid artery and proximal ICA are 91/29 and 87/36 cm/s. ICA to CCA peak systolic velocity ratio is 0.95 External carotid artery: No significant stenosis. Vertebral artery: Normal velocity, antegrade flow 68/20 cm/s. Procedure Note Brown Neri MD - 07/11/2023 US CAROTID DUPLEX COMPLETE (BILATERAL) HISTORY: TIA. TECHNIQUE: Ultrasound Carotid Duplex with color flow Doppler and spectralwaveform Doppler. Arterial inflow was assessed. COMPARISON: No relevant carotid imaging available. FINDINGS: Mild atherosclerotic mural thickening affects the carotid bulb on theleft, minimal effect upon the lumen. Right Common carotid artery: No discernible flow limiting stenosis throughoutthe cervical carotid artery. Internal carotid artery: There is no evidence of flow-limiting stenosisfollowing standard velocity criteria. Peak systolic over end diastolicvelocities within the distal common carotid artery and proximal ICA are90/29 and 73/23 cm/s. ICA to CCA peak systolic velocity ratio is 0.81. External carotid artery: No flow limiting stenosis. Vertebral artery: Normal velocity, antegrade flow 61/19 cm/s. Left Common carotid artery: No discernible flow limiting stenosis throughoutthe cervical carotid artery. Internal carotid artery: No evidence of flow-limiting stenosis by velocitycriteria or suggested on color flow imaging. Peak systolic over enddiastolic velocities within the distal common carotid artery and proximalICA are 91/29 and 87/36 cm/s. ICA to CCA peak systolic velocity ratio is0.95 External carotid artery: No significant stenosis. Vertebral artery: Normal velocity, antegrade flow 68/20 cm/s. IMPRESSION: Mild atherosclerotic changes. No evidence of hemodynamically significantcervical common carotid or proximal ICA stenosis. us Dayo Vazquez MD CV US NEUROVASCULAR Final Re sult documented in this encounter Visit Diagnoses Diagnosis TIA (transient ischemic attack)- Primary Unspecified transient cerebral ischemia TIA (transient ischemic attack) Unspecified transient cerebral ischemia documented in this encounter Care Teams Ichthyologist Relationship Specialty Start Date End Date Dayo Desai MD PCP - General Internal Medicine 07/12/16 07/02/23 Wayne Barnes MD [address] [place] [address] PCP - General Internal Medicine 07/03/23 Dorinda Reed MD [address] [place] [address]_OB/[place] [address] Obstetrics and Gynecology 07/20/16 Josh Herrera MBBS [address] [place] [address]_OB/[place] [address] Primary Oncologist Medical Oncology 05/24/18 documented as of this encounter Additional Source Comments The information contained in this document represents components of the legal health record. It is not the complete legal health record.[facility]
--- OUTSIDE RECORDS SUMMARY | 2024-12-03 12:51 | XMS_ITS | Encounter Summary ---
Author Organization [facility] Address [address] [place] [address] [place] [address] Phone Care Team Providers Care Land Acquisition Analyst Name Role Phone Dayo Desai MD Primary Care Provider Dorinda Arita MD Unavailable [phone] Josh Herrera Unavailable Wayne Barnes MD Primary Care Provider [phone] Encounter Details Date Type Department Care Team (Late st Contact Info) Description 02/06/2017 Procedure Pass [facility] Imaging [address] [place] [address] Social History Tobacco Use Types Packs/Day Years [...] PM EDT Office Visit [facility] [address] [place] [address] Luisa Forrest MD [address] [facility] [address] [place] [address] 11/26/2025 12:30 PM EDT Blood Draw [facility] Center for Gynecology Oncology [address] [facility], 9th Floor, [address] [place] [address] Josh Herrera MBBS [address] [facility] [place] [address] 11/26/2025 1:00 PM EDT Office Visit [facility] for Gynecology Oncology [address] [facility], 9th Floor, [address] [place] [address] Josh Herrera MBBS [address] [facility] [address] [place] [address] [email or web address] documented as of this encounter Visit Diagnoses Not on filedocumented in this encounter Care Teams Land Acquisition Analyst Relationship Specialty Start Date End Date Dayo Desai MD PCP - General Internal Medicine 07/12/16 07/02/23 Wayne Barnes MD [address] [place] [address] [address] [place] [address] PCP - General Internal Medicine 07/03/23 Dorinda Reed MD [address] [place] [address]_OB/SALESPERSON [place] [address] Obstetrics and Gynecology 07/20/16 Josh Herrera MBBS [address] [place] [address]_OB/SALESP[place] [address] [email or web address] Primary Oncologist Medical Oncology 05/24/18 documented as of this encounter Additional Source Comments The information contained in this document represents components of the legal health record. It is not the complete legal health record.[facility]
== END 2024-12-03 11:25 | disposition home or self-care (01) ==
LOC: HO.HPSW 10:32
PROVIDERS: PCP Internal Medicine; Referring Provider Internal Medicine; Visit Provider Nurse Practitioner Family
DX: R06.00 Dyspnea, unspecified (principal)
CPT/HCPCS: 99203

== ENCOUNTER → 2024-12-03 10:31 | Outpatient (BNVA) | payer MEDICARE, OTHER, SELFPAY | PROVIDERS: PCP Internal Medicine; Referring Provider Internal Medicine; Visit Provider Nurse Practitioner Family | DX: R06.00 Dyspnea, unspecified (principal) | CPT/HCPCS: 99202 ==

== ENCOUNTER 2024-12-19 09:58 | Outpatient (REF) | payer MEDICARE, OTHER, SELFPAY ==
--- NOTE | ~2024-12-19 | XR_ITS ---
EXAMINATION: XR CHEST CLINICAL INFORMATION: R06.00 - Dyspnea, unspecified COMPARISON: None available. TECHNIQUE: 2 views of the chest were obtained. FINDINGS: The cardiac, hilar, and mediastinal contours are normal. The lungs are mildly hyperaerated bilaterally, however clear. There is no pneumothorax or pleural effusion. There is no focal osseous or soft tissue abnormality. Exaggerated thoracic kyphosis with moderate degenerative changes. XR/XR chest 2V IMPRESSION: Hyperaerated lungs. No active pulmonary disease. Electronically signed by: Kg Baptiste MD 12/19/2024 11:15 AM EDT
--- NOTE | 2024-12-19 10:03 | PFT_ITS ---
Flows: FEV1: 105 % of predicted at 1.96 L FVC: 99 % of predicted at 2.41 L FEV1/FVC: 81 % Bronchodilator response: Present in small to medium airways only Volumes: Total lung capacity: 88 % of predicted at 4.02 L Residual volume: 73 % of predicted at 1.43 L Slow vital capacity: 103 % of predicted at 2.58 L Expiratory reserve volume: 80 % of predicted at 0.48 L Diffusion capacity: Normal Impression: No obstructive or restrictive ventilatory defect. Bronchodilator response is present in small to medium airways only. MTDD
[2024-12-19 10:59] VITALS: PULSE 58; O2SAT 98
== END 2024-12-19 09:59 | disposition home or self-care (01) ==
LOC: HO.RESP 09:58
PROVIDERS: PCP Internal Medicine; Visit Provider Nurse Practitioner Family
DX: R06.00 Dyspnea, unspecified (principal)
CPT/HCPCS: 71046; 94010; 94640; 94727; 94729

== ENCOUNTER → 2024-12-19 10:03 | Outpatient (BNV) | payer MEDICARE, OTHER, SELFPAY | PROVIDERS: PCP Internal Medicine; Visit Provider Internal Medicine Pulmonary Disease | DX: R06.00 Dyspnea, unspecified (principal) | CPT/HCPCS: 94060; 94727; 94729 ==

== ENCOUNTER → 2024-12-19 10:49 | Outpatient (BNV) | payer MEDICARE, OTHER, SELFPAY | PROVIDERS: PCP Internal Medicine; Visit Provider Radiology Diagnostic Radiology | DX: J98.4 Other disorders of lung (principal) | CPT/HCPCS: 71046 ==